=== PATIENT | male | born 1990 | race Caucasian/White ===

== ENCOUNTER 2017-06-28 22:18 | Emergency (ER) | payer OTHER ==
--- NOTE | 2017-06-28 23:03 | EDPHY ---
H & P Stated Complaint: syncope Time Seen by Provider: 06/28/17 22:45 HPI/ROS: Chief Complaint: Syncope HPI: 27-year-old male had a syncopal episode while he was looking at pictures of his brothers x-ray who broke his femur while skiing today. Patient was incontinent every passed out. He felt a little queasy afterwards and felt like he was going to pass out again but did not. He has had episodes of syncope in the past when his father removed a splinter from his fingernail and after he had his wisdom teeth removed. No chest pain. No shortness of breath. Does not have a family history of sudden cardiac or coronary artery disease. Also has not been eating or drinking much today and thinks he might be a little bit dehydrated. No fevers or chills. No headache. No palpitations. ROS: 10 point Review of Systems is negative except as noted in the HPI. PMH: None Social History: No smoking, no alcohol, no recreational drug use Family History: non-contributory Physical Exam: Gen: Awake, Alert, No Distress HEENT: Nose: no rhinorrhea Eyes: PERRLA, EOMI Mouth: Moist mucosa Neck: Supple, no JVD Chest: nontender, lungs clear to auscultation Heart: S1, S2 normal, no murmur Abd: Soft, non-tender, no guarding Back: no CVA tenderness, no midline tenderness Ext: no edema, non-tender Skin: no rash Neuro: CN II-XII intact, Sensation grossly intact, Strength 5/5 in bilateral upper and lower extremities - Personal History Current Tetanus/Diphtheria Vaccine: Unsure Current Tetanus Diphtheria and Acellular Pertussis (TDAP): Unsure - Medical/Surgical History Hx Asthma: No Hx Chronic Respiratory Disease: No Hx Diabetes: No Hx Cardiac Disease: No Hx Renal Disease: No Hx Cirrhosis: No Hx Alcoholism: No Hx HIV/AIDS: No Hx Splenectomy or Spleen Trauma: No - Social History Smoking Status: Never smoked Constitutional: Initial Vital Signs Temperature (C) 36.6 C 06/28/17 22:21 Heart Rate 60 06/28/17 22:21 Respiratory Rate 16 06/28/17 22:21 Blood Pressure 133/68 H 06/28/17 22:21 O2 Sat (%) 98 06/28/17 22:21 O2 Delivery Mode Room Air Allergies/Adverse Reactions: Penicillins Allergy (Verified 06/28/17 22:22) Medical Decision Making - Diagnostics EKG Interpretation: ECG time 11:02 p.m.. Sinus rhythm with a rate of 57, normal axis, normal intervals, there is a nephrology consistent with an incomplete right bundle branch block. He has mild J-point elevation consistent with early repolarization. No acute ischemia. No abnormal intervals. ED Course/Re-evaluation: 27-year-old male having symptoms consistent with vasovagal syncope. No concerning changes on his ECG. Will discharge with follow-up as an outpatient. Departure - Departure Disposition: Home, Routine, Self-Care Clinical Impression: Vasovagal syncope Condition: Good Instructions: Syncope (ED) Additional Instructions: Follow up with primary care physician in 3-4 days for further evaluation. Return to the emergency department for further episodes of fainting, chest pain , shortness of breath, palpitations, or any other concerns. Referrals: NONE *PRIMARY CARE P,. [Primary Care Provider] - As per Instructions
--- NOTE | 2017-06-28 23:04 | CPEKG ---
Heart Rate: 57 RR Interval: 1053 P-R Interval: 208 QRSD Interval: 108 QT Interval: 416 QTC Interval: 405 P Nova: 50 QRS Nova: 77 T Wave Nova: 56 EKG Severity - ABNORMAL ECG - EKG Impression: SINUS RHYTHM EKG Impression: INCOMPLETE RIGHT BUNDLE BRANCH BLOCK EKG Impression: ST ELEV, PROBABLE NORMAL EARLY REPOL PATTERN Electronically Signed By: Earnest Cunningham 29-Jun-2017 05:07:18
[2017-06-29 00:05] VITALS: BP 123/64; PULSE 65; RESP 18; TEMP 98.1; O2SAT 94
== END 2017-06-29 00:05 | disposition home or self-care (01) ==
DX: R55 Syncope and collapse (principal)